=== PATIENT | male | born 1950 | race Caucasian/White ===

== ENCOUNTER → 2018-11-05 09:03 | Outpatient (CLI) | payer MEDICARE, BC, SELFPAY ==
[2018-11-05 10:38] LABS: Add Manual Diff / Slide Review NO; Alanine Aminotransferase 16 IU/L (21-72); Albumin 4.5 g/dL (3.5-5.0); Albumin Globulin Ratio 1.3 (1.0-2.8); Alkaline Phosphatase 90 U/L (38-126); Aspartate Aminotransferase 29 IU/L (17-59); BUN Creatinine Ratio 15.6 (6-22); Basophils Absolute Auto 100 /uL (0-100); Basophils Percent Auto 1.2 % (0-2); Bilirubin Total 0.7 mg/dL (0.2-1.3); Blood Urea Nitrogen 14 mg/dL (9-20); Calcium 9.6 mg/dL (8.4-10.2); Carbon Dioxide 27 mmol/L (22-32); Chloride 104 mmol/L (98-107); Cholesterol 190 mg/dL (140-199); Eosinophils Absolute Auto 100 /uL (0-450); Eosinophils Percent Auto 2.2 % (2-4); Estimated Glomerular Filt Rate > 60.0 mL/min (>60); Globulin 3.4 g/dL (1.7-4.1); Glucose 98 mg/dL (80-110); HDL Cholesterol 56 mg/dL (40-60); HEMOLYSIS < 15 (0-50); Hemoglobin 14.7 g/dL (13.5-17.5); LDL Cholesterol Calculated 108 mg/dL (<100); Lymphocytes Absolute Auto 2200 /uL (1100-4500); Lymphocytes Percent Auto 32.5 % (25-40); Mean Corpuscular HGB Conc 33.4 % (30-36); Mean Corpuscular Hemoglobin 30.8 PG (26-34); Mean Corpuscular Volume 92.3 fL (80-100); Monocytes Absolute Auto 500 /uL (0-900); Monocytes Percent Auto 8.2 % (3-14); Neutrophils Absolute Auto 3700 /uL (1500-7000); Neutrophils Percent Auto 55.9 % (50-75); Platelet Count 342 X10^3/uL (150-400); Potassium 4.3 mmol/L (3.4-5.1); Red Blood Cell Count 4.77 X10^6/uL (4.5-5.9); Red Cell Distribution Width 14.1 % (11.6-14.8); Sodium 141 mmol/L (137-145); Total Protein 7.9 g/dL (6.3-8.2); Triglycerides 131 mg/dL (35-150); White Blood Cell Count 6.7 X10^3/uL (4.5-11.0)
[2018-11-05 11:09] LABS: Thyroid Stimulating Hormone 3.36 uIU/mL (0.47-4.68)
== END ==
PROVIDERS: PCP Family Medicine; Visit Provider Family Medicine
DX: Z13.220 Encounter for screening for lipoid disorders (principal); Z13.29 Encounter for screening for other suspected endocrine disorder; Z51.81 Encounter for therapeutic drug level monitoring; Z87.09 Personal history of other diseases of the respiratory system; Z12.5 Encounter for screening for malignant neoplasm of prostate
CPT/HCPCS: 36415; 80053; 80061; 84443; 85025; G0103

== ENCOUNTER → 2018-12-08 13:41 | Outpatient (CLI) | payer MEDICARE, BC, SELFPAY ==
--- NOTE | 2018-12-08 13:43 | DI.US.S_ITS ---
PROCEDURE: US ARTERIAL DUPLEX UE LT COMPARISON: None. INDICATIONS: At outside facility, patient underwent attempted venous catheter placement, with the left subclavian artery injury, resulting in placement of a covered stent. Evaluation of the left subclavian is requested. FINDINGS: A covered stent is present in the left subclavian artery. There is significant narrowing within the stent. At the proximal end of the stent, there is a severe stenosis. At the distal stent there is also severe stenosis. Proximal velocity is 207 cm/s. Distal velocity is 260 cm/s. Visually, stenoses are approximately 70%. Left axillary, brachial, radial, and ulnar arteries are patent. These vessels have triphasic flow. IMPRESSION: A covered stent is present in the left subclavian artery. There is significant stenotic narrowing of the lumen proximally and distally, in the neighborhood of 70%. Dictated by: Lazaro Hinkle M.D. on 12/08/2018 at 17:17 Approved by: Lazaro Hinkle M.D. on 12/08/2018 at 17:21
--- NOTE | 2018-12-08 13:49 | DI.CT.S_ITS ---
PROCEDURE: CT HEAD/BRAIN WO CON INDICATIONS: facial droop TECHNIQUE: Noncontrast 4.5 mm thick angled axial sections acquired from the foramen magnum to the vertex, with coronal and sagittal reformats. For radiation dose reduction, the following was used: automated exposure control, adjustment of mA and/or kV according to patient size. COMPARISON: None. FINDINGS: Image quality: Excellent. CSF spaces: Basal cisterns are patent. No extra-axial fluid collections. The ventricles are symmetric in size and shape. Brain: No intracranial bleeds or masses. There is cerebral volume loss for age, with resultant ventricular and sulcal prominence. There are periventricular and deep white matter chronic small vessel ischemic changes. There is intracranial internal carotid artery atherosclerosis. Skull and face: Calvarium and visualized facial bones appear intact, without suspicious lesions. Sinuses: Visualized sinuses and mastoids are clear. IMPRESSION: No acute intracranial process. If there is persistent high clinical concern for acute ischemia, further evaluation with brain MRI can be performed. Dictated by: Mio Choi M.D. on 12/08/2018 at 14:26 Approved by: Mio Choi M.D. on 12/08/2018 at 15:08
== END ==
PROVIDERS: PCP Family Medicine; Visit Provider Family Medicine
DX: R29.810 Facial weakness (principal); S25.10 Unspecified injury of innominate or subclavian artery; I70.208 Unspecified atherosclerosis of native arteries of extremities, other extremity
CPT/HCPCS: 70450; 93931

== ENCOUNTER 2020-06-05 08:49 | Emergency (ER) | payer MEDICARE, BC, SELFPAY ==
[2020-06-05 08:58] VITALS: BP 178/99; PULSE 100; RESP 20; TEMP 37.1; O2SAT 97
--- NOTE | 2020-06-05 08:59 | DI.CT.S_ITS ---
PROCEDURE: CT KIDNEY URETER BLADDER (KUB) INDICATIONS: let flank TECHNIQUE: Noncontrast 5 mm thick sections acquired from the diaphragms to the symphysis. 5 mm thick coronal and sagittal reformats were then performed. For radiation dose reduction, the following was used: automated exposure control, adjustment of mA and/or kV according to patient size. COMPARISON: None. FINDINGS: Image quality: Excellent. Lung bases: Lung bases are clear. Heart size is normal. Urinary system: Both kidneys are normal in size. Small nonobstructing bilateral renal calculi are present. There is mild left hydronephrosis and left ureteral dilatation. 5 mm calculus within the distal left ureter is present, with Hounsfield units of 727. Bladder wall thickness is normal; no calcified bladder stones. Other solid organs: Liver is normal in size. Gallbladder is within normal limits . Pancreas is normal in contours. Spleen is normal in size. No adrenal nodules. Peritoneum and bowel: Small hiatal hernia. Unenhanced bowel loops demonstrate normal wall thickness and caliber. No free fluid or air. Normal appendix. Nodes and vessels: No retroperitoneal or mesenteric adenopathy by size criteria. Aorta and inferior vena cava are normal in caliber. Abdominal wall: No ventral hernias. Pelvis: No free pelvic fluid. No inguinal hernias or adenopathy. Bones: No suspicious bony lesions. No vertebral body compression fractures. IMPRESSION: 1. Distal left ureteral calculus associated with mild left hydronephrosis. 2. Nonobstructing bilateral renal calculi. 3. Normal appendix. 4. Small hiatal hernia. Dictated by: Austin Smiley M.D. on 06/05/2020 at 8:24 Approved by: Austin Smiley M.D. on 06/05/2020 at 8:26
[2020-06-05 09:03] VITALS: PULSE 95; RESP 30; O2SAT 95
[2020-06-05] MEDS: ONDANSETRON 4 MG/2 ML INJ IV ×2 (09:04→10:00)
[2020-06-05] MEDS: KETOROLAC 60 MG/2 ML VIAL 30 MG IV (09:04)
[2020-06-05 09:05] LABS: Add Manual Diff / Slide Review NO; Basophils Absolute Auto 100 /uL (0-100); Basophils Percent Auto 0.9 % (0-2); Eosinophils Absolute Auto 100 /uL (0-450); Eosinophils Percent Auto 1.9 % (2-4); Hematocrit 47.9 % (41-53); Lymphocytes Absolute Auto 2300 /uL (1100-4500); Lymphocytes Percent Auto 29.7 % (25-40); Mean Corpuscular HGB Conc 33.4 % (30-36); Mean Corpuscular Hemoglobin 31.4 PG (26-34); Mean Corpuscular Volume 93.9 fL (80-100); Monocytes Absolute Auto 600 /uL (0-900); Monocytes Percent Auto 7.2 % (3-14); Neutrophils Absolute Auto 4800 /uL (1500-7000); Neutrophils Percent Auto 60.3 % (50-75); Platelet Count 313 X10^3/uL (150-400); Red Cell Distribution Width 13.3 % (11.6-14.8); White Blood Cell Count 7.9 X10^3/uL (4.5-11.0)
--- NOTE | 2020-06-05 09:15 | ED.MALEGU ---
HPI - Male Genitourinary General Chief complaint: Urogenital-Male Stated complaint: severe abdominal pain Time Seen by Provider: 06/05/20 08:54 Source: patient Mode of arrival: Wheelchair Limitations: no limitations History of Present Illness HPI Narrative: Patient is a 69-year-old male with left flank pain which started abruptly this morning. Does have a history of kidney stones with the last 1 was 3 or 4 years ago in this pain seems to be much worse. It is radiating from his flank to his groin. He is unsure if he had any hematuria. Location: left flank Radiation: left inguinal region Related Data Home Medications Medication Instructions Recorded Confirmed aspirin 81 mg tablet,delayed 81 mg PO DAILY 09/23/18 09/01/19 release clobetasol 0.05 % topical cream 1 applictn TOP DAILY 11/03/18 09/01/19 Previous Rx's Medication Instructions Recorded oxygen #1 ea 09/23/18 oxygen concentrator #1 ea 09/23/18 fluticasone 500 mcg-salmeterol 50 See Rx Instructions .ROUTE 05/16/20 mcg/dose blistr powdr for .COMPLEX #60 unspecified inhalation hydrocodone-acetaminophen [Broadbent] 1 tab PO Q6H PRN #10 tab 06/05/20 ondansetron 4 mg PO Q8H #10 tab 06/05/20 Allergies Allergy/AdvReac Type Severity Reaction Status Date / Time No Known Drug Allergies Allergy Verified 09/01/19 14:27 Review of Systems Review of Systems Narrative: GENERAL: Denies chills, fatigue, malaise, fever, sweats, travel HEENT: Denies sinus pain, ear pain, sore throat, difficulty swallowing, neck pain RESPIRATORY: Denies dyspnea, cough, wheezing, hemoptysis, sputum. CARDIOVASCULAR: Denies chest pain, palpitations, orthopnea, edema GASTROINTESTINAL: Denies nausea, vomiting, abdominal pain, diarrhea, constipation, melena. : See HPI MUSCULOSKELETAL: Denies weakness, joint pain, or bony pain SKIN: No rash, no erythema, no pruritus NEUROLOGIC: Denies weakness, dizziness, headache, numbness, change in speech, confusion PSYCHIATRIC: No concerning psychosocial issues. 12 point review of systems is negative except for those stated above and HPI Patient History Medical History Actinic keratoses (Acute) Chicken pox (Resolved ~1954) COPD (chronic obstructive pulmonary disease) (Chronic) Discoid lupus (Acute) Hemorrhoid (Chronic ~1969) Measles (Resolved ~1954) Mumps (Resolved ~1954) Squamous cell carcinoma (Acute) Tobacco abuse disorder (Acute) Vision disorder (Chronic) Surgical History History of surgery (Resolved) Kidney stones (Resolved ~2016) Family History Father No problems noted. Mother No problems noted. Social History Smoking Status: Current every day smoker Tobacco: How many years used: 55 second hand exposure: No alcohol intake: current (a beer once a month or so.) substance use type: does not use Smoking Status: Current every day smoker alcohol intake frequency: 0-2 drinks per day Substance Use Type: does not use Exam Initial Vital Signs Initial Vital Signs: Vital Signs Temperature 98.7 F 06/05/20 08:58 Pulse Rate 100 H 06/05/20 08:58 Respiratory Rate 20 06/05/20 08:58 Blood Pressure 178/99 H 06/05/20 08:58 Pulse Oximetry 97 06/05/20 08:58 GENERAL: Patient appears in pain and in no acute distress. HEENT: Head atraumatic,EOMI, pupils reactive, face symmetric, moist mucous membranes CARDIOVASCULAR: Regular rate and rhythm without murmurs, rubs or gallops. RESPIRATORY: Breath sounds equal bilaterally, no wheezes rales or rhonchi. ABDOMEN: Soft, nontender. Normoactive bowel sounds all 4 quadrants. No guarding or rebound. : Left CVA tenderness EXTREMITIES: Normal range of motion, no clubbing or edema. Neurovascularly intact NEUROLOGICAL: Alert and oriented x4.N SKIN: Warm, dry, no laceration, no petechiae, no rashes or lesions. Course Orders Ordered: ED Orders 06/05/20 08:59 CT kidney ureter bladder (KUB) Stat 06/05/20 09:00 Complete Blood Count AUTO DIFF Stat Comprehensive Metabolic Panel Stat Lipase Stat 06/05/20 09:55 Urine Microscopic Stat Discontinued Medications Ketorolac Tromethamine (Toradol) 30 mg IV NOW ONE Stop: 06/05/20 09:00 Last Admin: 06/05/20 09:04 Dose: 30 mg Documented by: JONG Morphine Sulfate (Morphine) 4 mg IV NOW ONE Stop: 06/05/20 09:57 Last Admin: 06/05/20 10:00 Dose: 4 mg Documented by: HILARY Ondansetron HCl (Zofran) 4 mg IV NOW ONE Stop: 06/05/20 09:00 Last Admin: 06/05/20 09:04 Dose: 4 mg Documented by: JONG Ondansetron HCl (Zofran) 4 mg IV NOW ONE Stop: 06/05/20 09:57 Last Admin: 06/05/20 10:00 Dose: 4 mg Documented by: HILARY Vital Signs Vital signs: Vital Signs - 8 hr 06/05/20 08:58 06/05/20 09:03 06/05/20 09:30 Temperature 98.7 F Pulse Rate 100 H 95 H 98 H Respiratory Rate 20 30 H 21 Blood Pressure 178/99 H Pulse Oximetry 97 95 93 06/05/20 09:42 06/05/20 10:00 06/05/20 10:30 Temperature Pulse Rate 112 H 112 H 102 H Respiratory Rate 25 H 26 H 19 Blood Pressure 164/95 H 162/106 H 140/86 Pulse Oximetry 95 94 89 L MDM - Male Genitourinary Lab Data Attestation: I reviewed the patient's lab results. Result diagrams: 06/05/20 09:00 06/05/20 09:00 Labs: Lab Results 06/05/20 06/05/20 06/05/20 Range/Units 09:00 09:00 09:55 WBC 7.9 (4.5-11.0) X10^3/uL RBC 5.10 (4.5-5.9) X10^6/uL Hgb 16.0 (13.5-17.5) g/dL Hct 47.9 (41-53) % MCV 93.9 (80-100) fL MCH 31.4 (26-34) PG MCHC 33.4 (30-36) % RDW 13.3 (11.6-14.8) % Plt Count 313 (150-400) X10^3/uL Neut % (Auto) 60.3 (50-75) % Lymph % (Auto) 29.7 (25-40) % [place] % (Auto) 7.2 (3-14) % Eos % (Auto) 1.9 L (2-4) % Baso % (Auto) 0.9 (0-2) % Neut # (Auto) 4800 (9516-2853) /uL Lymph # (Auto) 2300 (1611-1828) /uL [place] # (Auto) 600 (0-900) /uL Eos # (Auto) 100 (0-450) /uL Baso # (Auto) 100 (0-100) /uL Sodium 140 (137-145) mmol/L Potassium 4.1 (3.4-5.1) mmol/L Chloride 109 H (98-107) mmol/L Carbon Dioxide 27 (22-32) mmol/L BUN 18 (9-20) mg/dL Creatinine 1.04 (0.66-1.25) mg/dL Estimated GFR > 60.0 (>60) mL/min BUN/Creatinine Ratio 17.3 (6-22) Glucose 149 H (80-110) mg/dL Calcium 9.4 (8.4-10.2) mg/dL Total Bilirubin 0.7 (0.2-1.3) mg/dL AST 31 (17-59) IU/L ALT 21 (<50) IU/L Alkaline Phosphatase 114 (38-126) U/L Total Protein 8.0 (6.3-8.2) g/dL Albumin 4.4 (3.5-5.0) g/dL Globulin 3.6 (1.7-4.1) g/dL Albumin/Globulin Ratio 1.2 (1.0-2.8) Lipase 82 (23-300) U/L Urine RBC 10-30/hpf H (0-5/HPF) Urine WBC None seen (0-5/HPF) Urine Bacteria None seen (None) Ur Culture Indicated? Cult not indicated Urine Dip Bedside Urine Glucose Negative Bedside Urine Bilirubin - Negative Bedside Urine Ketone - Negative Urine Specific [place] 1.030 Bedside Urine Occult Blood +++ Bedside Urine pH 6 Bedside Urine Protein - Negative Bedside Urine Urobilinogen - Negative Bedside Urine Nitrite - Negative Bedside Urine Leukocytes - Negative Esterase Imaging Data CT scan - abdomen/pelvis: Radiologist's Impression: PROCEDURE: CT KIDNEY URETER BLADDER (KUB) INDICATIONS: let flank TECHNIQUE: Noncontrast 5 mm thick sections acquired from the diaphragms to the symphysis. 5 mm thick coronal and sagittal reformats were then performed. For radiation dose reduction, the following was used: automated exposure control, adjustment of mA and/or kV according to patient size. COMPARISON: None. FINDINGS: Image quality: Excellent. Lung bases: Lung bases are clear. Heart size is normal. Urinary system: Both kidneys are normal in size. Small nonobstructing bilateral renal calculi are present. There is mild left hydronephrosis and left ureteral dilatation. 5 mm calculus within the distal left ureter is present, with Hounsfield units of 727. Bladder wall thickness is normal; no calcified bladder stones. Other solid organs: Liver is normal in size. Gallbladder is within normal limits . Pancreas is normal in contours. Spleen is normal in size. No adrenal nodules. Peritoneum and bowel: Small hiatal hernia. Unenhanced bowel loops demonstrate normal wall thickness and caliber. No free fluid or air. Normal appendix. Nodes and vessels: No retroperitoneal or mesenteric adenopathy by size criteria. Aorta and inferior vena cava are normal in caliber. Abdominal wall: No ventral hernias. Pelvis: No free pelvic fluid. No inguinal hernias or adenopathy. Bones: No suspicious bony lesions. No vertebral body compression fractures. IMPRESSION: 1. Distal left ureteral calculus associated with mild left hydronephrosis. 2. Nonobstructing bilateral renal calculi. 3. Normal appendix. 4. Small hiatal hernia. Dictated by: Austin Smiley M.D. on 06/05/2020 at 8:24 Approved by: Austin Smiley M.D. on 06/05/2020 at 8:26 [facility] Narrative Medical decision making narrative: Patient's pain is better controlled after morphine and Toradol. He does have a 5 mm stone no sign of infection. Discharge Plan Departure Patient Disposition: Home Clinical Impression: Kidney stone on left side Discharge Date/Time: 06/05/20 10:47 Activity Restrictions/Additional Instructions: *You have been diagnosed with left-sided kidney stimulation *What to do: You should pass this kidney stone over the next 72 hours. Increase fluid intake as tolerated *Continue to take medications as directed-->SENT TO [facility] Motrin 800 mg every 8 hours if needed for [id number] pain Broadbent 1 tablet every 6 hours for severe pain Zofran 4 mg every 8 hours for nausea or vomiting *Follow up with your primary care provider in 2-3 days *Return to ER if you should have pain not controlled with medication, fever, inability to urinate or any new, worsening or concerning symptoms CONTROLLED SUBSTANCE DISCHARGE (Narcotoic/benzodiazepine/Flexeril/Phenergan) 1. You have been prescribed narcotic medications, it does have acetaminophen/Tylenol/paracetamol in it so do not take extra Tylenol or Tylenol containing products TRAMADOL DOES NOT CONTAIN TYLENOL 2. Please understand that we cannot provide further refills of narcotics, benzodiazepines or controlled substances through the ED and her pain management will need to be through your provider. 3. While on these medications you cannot drive or operate heavy machinery. 4. You cannot sign legal documents or perform any duties such as this. 5. As long as you're taking opiate pain medications he should also be taking a stool softener such as Colace, Dulcolax, MiraLAX or prune juice, to help avoid constipation. Prescriptions: New hydrocodone-acetaminophen [Broadbent] 5-325 mg tablet 1 tab PO Q6H PRN (Reason: pain) Qty: 10 RF: 0 ondansetron 4 mg tablet,disintegrating 4 mg PO Q8H Qty: 10 RF: 0 No Action clobetasol 0.05 % cream 1 applictn TOP DAILY RF: 0 aspirin [Adult Aspirin Regimen] 81 mg tablet,delayed release (DR/EC) 81 mg PO DAILY RF: 0 (DME) oxygen concentrator Qty: 1 RF: 0 (DME) oxygen Qty: 1 RF: 0 fluticasone propion-salmeterol [Advair Diskus] 500-50 mcg/dose blister with device See Rx Instructions .ROUTE .COMPLEX Qty: 60 RF: 11 Referrals: Dago Jean DO [Primary Care Provider] -
[2020-06-05 09:16] LABS: Alanine Aminotransferase 21 IU/L (<50); Albumin 4.4 g/dL (3.5-5.0); Albumin Globulin Ratio 1.2 (1.0-2.8); Alkaline Phosphatase 114 U/L (38-126); Aspartate Aminotransferase 31 IU/L (17-59); BUN Creatinine Ratio 17.3 (6-22); Bilirubin Total 0.7 mg/dL (0.2-1.3); Blood Urea Nitrogen 18 mg/dL (9-20); Calcium 9.4 mg/dL (8.4-10.2); Carbon Dioxide 27 mmol/L (22-32); Chloride 109 mmol/L (98-107); Estimated Glomerular Filt Rate > 60.0 mL/min (>60); Globulin 3.6 g/dL (1.7-4.1); Glucose 149 mg/dL (80-110); HEMOLYSIS 19 (0-50); Lipase 82 U/L (23-300); Potassium 4.1 mmol/L (3.4-5.1); Sodium 140 mmol/L (137-145)
[2020-06-05 09:30] VITALS: PULSE 98; RESP 21; O2SAT 93
[2020-06-05 09:42] VITALS: BP 164/95; PULSE 112; RESP 25; O2SAT 95
[2020-06-05 10:00] VITALS: BP 162/106; PULSE 112; RESP 26; O2SAT 94
[2020-06-05] MEDS: MORPHINE 4 MG/ML INJ IV (10:00)
[2020-06-05 10:11] LABS: Bacteria Urine None Seen; WBC Urine None Seen (0-5/HPF)
[2020-06-05 10:21] LABS: Culture Indicated Urine Cult Not Indicated; RBC Urine 10-30/HPF (0-5/HPF)
[2020-06-05 10:30] VITALS: BP 140/86; PULSE 102; RESP 19; O2SAT 89
== END 2020-06-05 10:47 | disposition home or self-care (01) ==
PROVIDERS: Emergency Provider Emergency Medicine; PCP Family Medicine
DX: N20.0 Calculus of kidney (principal); Z87.442 Personal history of urinary calculi
CPT/HCPCS: 36415; 74176; 80053; 81003; 81015; 83690; 85025; 96374; 96375; 96376; 99283; 99284; J1885; J2270; J2405

== ENCOUNTER → 2023-09-12 15:05 | Outpatient (CLI) | payer MEDICARE, BC, SELFPAY ==
[2023-09-12 15:29] LABS: COVID19 -Nasal RAPID Negative (Negative)
== END ==
PROVIDERS: PCP Family Medicine; Visit Provider Family Medicine
DX: Z20.822 Contact with and (suspected) exposure to COVID-19 (principal)
CPT/HCPCS: 87635

== ENCOUNTER → 2023-09-17 12:53 | Outpatient (CLI) | payer MEDICARE, BC, SELFPAY ==
[2023-09-17 14:05] LABS: Add Manual Diff / Slide Review NO; Basophils Absolute Auto 100 /uL (0-100); Basophils Percent Auto 0.6 % (0-2); Eosinophils Absolute Auto 100 /uL (0-450); Hematocrit 41.2 % (41-53); Hemoglobin 13.8 g/dL (13.5-17.5); Lymphocytes Absolute Auto 1700 /uL (1100-4500); Lymphocytes Percent Auto 17.7 % (25-40); Mean Corpuscular HGB Conc 33.5 % (30-36); Mean Corpuscular Hemoglobin 30.7 PG (26-34); Mean Corpuscular Volume 91.6 fL (80-100); Monocytes Absolute Auto 400 /uL (0-900); Monocytes Percent Auto 4.2 % (3-14); Neutrophils Absolute Auto 7300 /uL (1500-7000); Neutrophils Percent Auto 76.5 % (50-75); Platelet Count 601 X10^3/uL (150-400); Red Cell Distribution Width 12.7 % (11.6-14.8); White Blood Cell Count 9.5 X10^3/uL (4.5-11.0)
[2023-09-17 14:36] LABS: Alanine Aminotransferase 20 IU/L (<50); Albumin 3.6 g/dL (3.5-5.0); Albumin Globulin Ratio 0.9 (1.0-2.8); Alkaline Phosphatase 97 U/L (38-126); Aspartate Aminotransferase 28 IU/L (17-59); BUN Creatinine Ratio 15.2 (6-22); Bilirubin Total 0.6 mg/dL (0.2-1.3); Blood Urea Nitrogen 12 mg/dL (9-20); Carbon Dioxide 27 mmol/L (22-32); Chloride 99 mmol/L (98-107); Estimated Glomerular Filt Rate > 60 mL/min (>60); Globulin 4.2 g/dL (1.7-4.1); Glucose 101 mg/dL (80-110); HEMOLYSIS < 15 (0-50); Potassium 5.3 mmol/L (3.4-5.1); Sodium 134 mmol/L (137-145); Total Protein 7.8 g/dL (6.3-8.2)
== END ==
PROVIDERS: PCP Family Medicine; Referring Provider Family Medicine; Visit Provider Family Medicine
DX: R63.4 Abnormal weight loss (principal); J44.9 Chronic obstructive pulmonary disease, unspecified; Z72.0 Tobacco use
CPT/HCPCS: 36415; 80053; 85025

== ENCOUNTER → 2023-09-23 10:24 | Outpatient (CLI) | payer MEDICARE, BC, SELFPAY ==
--- NOTE | 2023-09-23 10:30 | DI.CT.S_ITS ---
PROCEDURE: CT LUNG LOW DOSE SCREENING INDICATIONS: smoking, hypoxia, weight loss TECHNIQUE: Noncontrast 2.0-2.5 mm thick sections acquired from the pulmonary apices to the posterior costophrenic angles. 7 mm thick axial MIP, and 5 mm coronal and sagittal reformats were then acquired. For radiation dose reduction, the following was used: automated exposure control, adjustment of mA and/or kV according to patient size. COMPARISON: None. FINDINGS: Image quality: Diagnostic. Lower Neck: No enlarged lymph nodes. Thyroid: No thyroid nodules which require sonographic follow up, per consensus guidelines. Axillae: No enlarged lymph nodes. Chest Wall: Unremarkable. Bones: Unremarkable. Lungs and Pleura: No pneumothorax or pleural effusions. Severe upper lobe predominant centrilobular emphysema. There are multiple areas of masslike consolidation predominantly in the dependent aspect of the right upper and right lower lobe, for example mass-like consolidation in the right lower lobe measuring 2.8 x 2.1 centimeter (3/284). Heart: Heart size is normal. No pericardial effusion. Moderate to severe coronary artery calcifications. Thoracic Vessels: The aorta and pulmonary arteries demonstrate normal size. Mediastinum and [place]: No enlarged lymph nodes. Esophagus: No wall thickening. No hiatal hernia. Upper Abdomen: Visualized upper abdomen solid organs and bowel loops appear normal. IMPRESSION: Multiple masslike consolidations in the right lung with largest confluent area in the posterior right lower lobe measuring approximately 2.8 centimeters. No thoracic lymphadenopathy. Severe upper lobe predominant centrilobular emphysema. LUNG-RADS 4 B; suspicious: Recommend chest CT with and without contrast, PET-CT and/or biopsy. Clinically Significant Non-pulmonary Findings: Moderate to severe coronary artery calcifications. Consider cardiology referral. Approved by: Farida Miles M.D. on 09/23/2023 at 12:42
== END ==
PROVIDERS: PCP Family Medicine; Referring Provider Family Medicine; Visit Provider Family Medicine
DX: J44.9 Chronic obstructive pulmonary disease, unspecified (principal); R91.8 Other nonspecific abnormal finding of lung field; Z72.0 Tobacco use; Z12.2 Encounter for screening for malignant neoplasm of respiratory organs; R63.4 Abnormal weight loss; I25.10 Atherosclerotic heart disease of native coronary artery without angina pectoris
CPT/HCPCS: 71271

== ENCOUNTER → 2024-01-02 12:00 | Outpatient (CLI) | payer MEDICARE, BC, SELFPAY ==
--- NOTE | 2024-01-02 12:02 | DI.CT.S_ITS ---
PROCEDURE: CT SOFT TISSUE NECK WO CON INDICATIONS: Squamous Cell Carcinoma of lip TECHNIQUE: Non-contrast 3.0 mm axial sections acquired from the sella to the aortic arch. 3 mm thick coronal reformats were generated. For radiation dose reduction, the following was used: automated exposure control. COMPARISON: [facility], CT, CT CHEST WO CON, 01/02/2024, 12:13. FINDINGS: Image quality: Limited by lack of IV contrast. There is artifact associated with the metallic dental work. Lymph nodes: No enlarged lymph nodes seen throughout the neck. Vessels: Non-opacified vessels appear normal in caliber. Neck spaces: The oropharynx, nasopharynx, and pharynx demonstrate no mucosal lesions. The vocal cords, false vocal cords, pyriform sinuses, epiglottis, vallecula, and tongue base all appear normal. Soft tissue swelling and irregularity can be seen involving the right lower lip. Emphysematous changes Glands: The parotid and submandibular glands appear normal, without stones. Thyroid gland demonstrates no significant noncontrast abnormality. Miscellaneous: Visualized brain and orbits appear normal. Emphysematous changes can be seen at the lung apices. Superficial soft tissues appear normal. There is a left subclavian stent seen. IMPRESSION: Known soft tissue irregularity can be seen involving the right lower lip. No additional masses are seen. No frankly enlarged lymph nodes are seen. Additional findings: Emphysematous changes Left subclavian stent Dictated by: Klever May M.D. on 01/06/2024 at 14:53 Approved by: Klever May M.D. on 01/06/2024 at 14:56
--- NOTE | 2024-01-02 12:02 | DI.CT.S_ITS ---
PROCEDURE: CT CHEST WO CON INDICATIONS: Squamous Cell Carcinoma of lip TECHNIQUE: Noncontrast 5 mm thick sections acquired from the pulmonary apices to the posterior costophrenic angles. 1 mm lung window, 5 mm thick coronal and sagittal and 7 mm axial MIP reformats were then acquired. For radiation dose reduction, the following was used: automated exposure control, adjustment of mA and/or kV according to patient size. COMPARISON: [facility], CT, CT LUNG LOW DOSE SCREENING, 09/23/2023, 10:46. FINDINGS: Image quality: Diagnostic Lungs and pleura: Advanced emphysematous changes. Scattered scarring and atelectasis. Masslike consolidation, appearing linear on coronal images, probably a thick area of scar (4/37) measuring 9 mm in thickness. Smaller nodular areas is also seen in the lingula and dependent lower lobes. These findings are decreased compared to September of 2023. No pleural effusions. Mediastinum, heart, and esophagus: Atherosclerotic calcifications. Heart size is within normal limits. Significant coronary disease. No pathologic lymph nodes by size criteria on this noncontrast study. Chest wall and thyroid: Unremarkable thyroid and chest wall Upper abdomen: No gross abnormality on these noncontrast images. The stomach is mildly distended. Bones: Degenerative changes. IMPRESSION: Scattered scarring and atelectasis in the lungs. More nodular regions are seen in the right upper lobe, dependent lower lobes, and lingula, overall decreased in severity compared to 09/23/2023. Continued attention on follow-up suggested given provided history of malignancy. Other findings as above. Dictated by: Yann Waggoner M.D. on 01/02/2024 at 14:18 Approved by: Yann Waggoner M.D. on 01/02/2024 at 14:21
== END ==
PROVIDERS: PCP Family Medicine; Referring Provider Radiology Radiation Oncology; Visit Provider Radiology Radiation Oncology
DX: C00.1 Malignant neoplasm of external lower lip (principal); J98.4 Other disorders of lung; J98.11 Atelectasis; I25.10 Atherosclerotic heart disease of native coronary artery without angina pectoris; R91.8 Other nonspecific abnormal finding of lung field; M79.89 Other specified soft tissue disorders; Z95.828 Presence of other vascular implants and grafts
CPT/HCPCS: 70490; 71250

== ENCOUNTER 2024-01-16 14:21 | Inpatient (IN) | payer MEDICARE, BC, SELFPAY ==
[2024-01-16 14:23] VITALS: BP 130/79; PULSE 114; RESP 16; TEMP 36.5; O2SAT 94; BMI 19.9
[2024-01-16 14:45] LABS: Add Manual Diff / Slide Review NO; Basophils Absolute Auto 100 /uL (0-100); Basophils Percent Auto 1.1 % (0-2); Eosinophils Absolute Auto 200 /uL (0-450); Eosinophils Percent Auto 1.6 % (2-4); Hematocrit 41.9 % (41-53); Hemoglobin 14.1 g/dL (13.5-17.5); Lymphocytes Absolute Auto 1200 /uL (1100-4500); Lymphocytes Percent Auto 11.7 % (25-40); Mean Corpuscular HGB Conc 33.6 % (30-36); Mean Corpuscular Hemoglobin 30.9 PG (26-34); Monocytes Absolute Auto 600 /uL (0-900); Monocytes Percent Auto 5.5 % (3-14); Neutrophils Absolute Auto 8400 /uL (1500-7000); Neutrophils Percent Auto 80.1 % (50-75); Platelet Count 373 X10^3/uL (150-400); Red Blood Cell Count 4.56 X10^6/uL (4.5-5.9); Red Cell Distribution Width 12.6 % (11.6-14.8); White Blood Cell Count 10.4 X10^3/uL (4.5-11.0)
[2024-01-16 14:58] LABS: Alanine Aminotransferase 15 IU/L (<50); Albumin 4.4 g/dL (3.5-5.0); Albumin Globulin Ratio 1.1 (1.0-2.8); Alkaline Phosphatase 106 U/L (38-126); Aspartate Aminotransferase 31 IU/L (17-59); Bilirubin Total 0.7 mg/dL (0.2-1.3); Blood Urea Nitrogen 17 mg/dL (9-20); Calcium 9.9 mg/dL (8.4-10.2); Carbon Dioxide 33 mmol/L (22-32); Chloride 103 mmol/L (98-107); Estimated Glomerular Filt Rate > 60 mL/min (>60); Globulin 4.1 g/dL (1.7-4.1); Glucose 146 mg/dL (80-110); HEMOLYSIS 42 (0-50); Lipase 64 U/L (23-300); Sodium 141 mmol/L (137-145); Total Protein 8.5 g/dL (6.3-8.2)
[2024-01-16 14:59] LABS: Potassium 5.4 mmol/L (3.4-5.1)
--- NOTE | 2024-01-16 15:10 | DI.CT.S_ITS ---
PROCEDURE: CT ABDOMEN PELVIS W CON INDICATIONS: Eval for bowel obstruction TECHNIQUE: After the administration of intravenous contrast, axial sections acquired from the lung bases to the pubic symphysis. Coronal and sagittal reformats were performed. For radiation dose reduction, the following was used: automated exposure control, adjustment of mA and/or kV according to patient size. COMPARISON: None. FINDINGS: Image quality: Diagnostic. Lower Chest: No significant findings. ABDOMEN: Liver: No solid mass. Liver measures 16.4 cm with minimal steatosis. Gallbladder: No radiopaque gallstones or wall thickening. Biliary ducts: No biliary dilation. Pancreas: No ductal dilation. Spleen: Size is within normal limits. Adrenal Glands: No adrenal nodules. Kidneys and Ureters: No hydronephrosis. No solid mass. No complex renal cystic lesion which requires follow up. Stomach and Bowel: Normal colonic caliber, without significant wall thickening. Prominent colonic stool particularly within the left colon and rectum. No obstruction. Peritoneum: No abnormal intraperitoneal fluid. No free air. Ventral Wall: No significant ventral hernia. Abdominal Nodes: No retroperitoneal or mesenteric adenopathy by size criteria. Vessels: Aorta and inferior vena cava are normal in size. PELVIS: Pelvic Organs: Unremarkable. Bladder: No bladder wall thickening, accounting for underdistention. Pelvic Nodes: No enlarged lymph nodes. Miscellaneous: No inguinal hernias are seen. Bones: No aggressive osseous abnormality. IMPRESSION: Prominent colonic stool without obstruction. Dictated by: Zohra Scales M.D. on 01/16/2024 at 16:11 Approved by: Zohra Scales M.D. on 01/16/2024 at 16:12
[2024-01-16 16:41] VITALS: BP 103/68; PULSE 121; RESP 26; O2SAT 93
--- NOTE | 2024-01-16 17:15 | ED_ITS ---
HPI - General Adult <Hamilton aWtts - Last Filed: 01/17/24 07:12> General Chief complaint: Abdominal Pain Stated complaint: abd pain, constipation, gas Time Seen by Provider: 01/16/24 16:52 Source: patient Mode of arrival: Ambulatory History of Present Illness HPI narrative: Patient is a 73-year-old male who is here for evaluation of what he thinks is constipation. He states that he can not remember the last time that he had a bowel movement. States it feels like there is something down in his rectum ready to come out. Has not tried anything for the symptoms prior to this. No prior abdominal surgeries. Has had some nausea but no vomiting. No fevers. No urinary symptoms. Related Data Previous Rx's Medication Instructions Recorded oxygen #1 ea 11/12/23 oxygen concentrator #1 ea 11/12/23 Allergies Allergy/AdvReac Type Severity Reaction Status Date / Time No Known Drug Allergies Allergy Verified 09/27/23 11:37 Review of Systems <Hamilton Watts - Last Filed: 01/17/24 07:12> Constitutional Constitutional: Reports system reviewed and no additional complaints, except as documented Gastrointestinal Gastrointestinal: Reports system reviewed and no additional complaints, except as documented Genitourinary Genitourinary: Reports system reviewed and no additional complaints, except as documented Integumentary/Breasts Skin/Breast: Reports system reviewed and no additional complaints, except as documented Patient History <Hamilton Watts DO - Last Filed: 01/17/24 07:12> Medical History Diffusion capacity of lung (dl), decreased Weight loss, abnormal Hiatal hernia Kidney stones Kidney stone on left side Tobacco abuse disorder COPD (chronic obstructive pulmonary disease) Discoid lupus Squamous cell carcinoma Actinic keratoses Vision disorder Mumps (~1955) Measles (~1954) Chicken pox (~1954) Hemorrhoid (~1970) Surgical History History of surgery Kidney stones (~2017) Family History Father No problems noted. Mother No problems noted. Social History Smoking Status: Current every day smoker Tobacco: How many years used: 55 second hand exposure: No alcohol intake: current substance use type: does not use Smoking Status: Current every day smoker alcohol intake frequency: 0-2 drinks per day Substance Use Type: does not use Exam <Hamilton Watts DO - Last Filed: 01/17/24 07:12> Initial Vital Signs Initial Vital Signs: Vital Signs Temperature 97.7 F 01/16/24 14:23 Pulse Rate 114 H 01/16/24 14:23 Respiratory Rate 16 01/16/24 14:23 Blood Pressure 130/79 01/16/24 14:23 Pulse Oximetry 94 01/16/24 14:23 Oxygen Delivery Method Room Air 01/16/24 14:23 HENMT Head: normal to inspection and normocephalic Resp Effort & Inspection: normal respiratory effort GI Inspection: non-distended Palpation: soft and tender Rectal Exam: fecal impaction Skin General: no rashes or lesions noted Extrem General: normal to inspection and capillary refill normal <Doyle Lainez MD - Last Filed: 01/17/24 07:44> Initial Vital Signs Initial Vital Signs: Vital Signs Temperature 97.7 F 01/16/24 14:23 Pulse Rate 114 H 01/16/24 14:23 Respiratory Rate 16 01/16/24 14:23 Blood Pressure 130/79 01/16/24 14:23 Pulse Oximetry 94 01/16/24 14:23 Oxygen Delivery Method Room Air 01/16/24 14:23 Course <Hamilton Watts DO - Last Filed: 01/17/24 07:12> Orders Ordered: Acetaminophen (Acetaminophen 325 Mg Tablet) 650 mg PO Q6H PRN PRN Reason: Fever/Mild Pain (1-3) Al Hydrox/Mg Hydrox/Simethicone (Mag Hydrox/Alum/Simeth 30 Ml Udc) 30 ml PO Q6HR PRN PRN Reason: Dyspepsia Bisacodyl (Bisacodyl 10 Mg Supp) 10 mg MT DAILY PRN PRN Reason: Constipation Magnesium Hydroxide (Magnesium Hydroxide 30 Ml Udc) 30 ml PO DAILY PRN PRN Reason: Constipation Naloxone HCl (Naloxone 0.4 Mg/Ml Vial) 0.2 mg IV Q2MIN PRN PRN Reason: Opiate Reversal Ondansetron HCl (Ondansetron 4 Mg/2 Ml Inj) 4 mg IV NOW PRN PRN Reason: Nausea And Vomiting Ondansetron HCl (Ondansetron 4 Mg Odt) 4 mg PO NOW PRN PRN Reason: Nausea And Vomiting Ondansetron HCl (Ondansetron 4 Mg/2 Ml Inj) 4 mg IV Q8HR PRN PRN Reason: Nausea And Vomiting Discontinued Medications Hydromorphone HCl (Hydromorphone 0.5 Mg Inj) 0.5 mg IV NOW ONE Stop: 01/16/24 23:16 Last Admin: 01/16/24 23:23 Dose: 0.5 mg Documented By: AB Hydromorphone HCl (Hydromorphone 1 Mg Inj) 1 mg IV NOW ONE Stop: 01/17/24 04:52 Last Admin: 01/17/24 05:01 Dose: 1 mg Documented By: Lactulose (Lactulose 20 Gm/30 Ml Solution) 20 gm PO NOW ONE Stop: 01/16/24 19:18 Last Admin: 01/16/24 19:21 Dose: 20 gm Documented By: Mineral Oil (Mineral Oil 1 Each Enema) 1 each MT NOW ONE Stop: 01/16/24 18:23 Last Admin: 01/16/24 18:28 Dose: 1 each Documented By: JAKOB Polyethylene Glycol/Electrolytes ([id number]/Sod Sulf,Bicarb,Cl/Kcl 4,000 Ml Solution) 4,000 ml PO NOW ONE Stop: 01/17/24 01:53 Last Admin: 01/17/24 02:15 Dose: 4,000 ml Documented By: SR Sodium Biphosphate/Sodium Phosphate (Fleets Enema) 1 each MT NOW ONE Stop: 01/16/24 17:24 Last Admin: 01/16/24 17:36 Dose: 1 each Documented By: MPO Vital Signs Vital signs: Vital Signs - 8 hr 01/16/24 16:41 Pulse Rate 121 H Respiratory Rate 26 H Blood Pressure 103/68 Pulse Oximetry 93 Oxygen Delivery Method Room Air <Doyle Lainez MD - Last Filed: 01/17/24 07:44> Orders Ordered: Acetaminophen (Acetaminophen 325 Mg Tablet) 650 mg PO Q6H PRN PRN Reason: Fever/Mild Pain (1-3) Al Hydrox/Mg Hydrox/Simethicone (Mag Hydrox/Alum/Simeth 30 Ml Udc) 30 ml PO Q6HR PRN PRN Reason: Dyspepsia Bisacodyl (Bisacodyl 10 Mg Supp) 10 mg MT DAILY PRN PRN Reason: Constipation Magnesium Hydroxide (Magnesium Hydroxide 30 Ml Udc) 30 ml PO DAILY PRN PRN Reason: Constipation Naloxone HCl (Naloxone 0.4 Mg/Ml Vial) 0.2 mg IV Q2MIN PRN PRN Reason: Opiate Reversal Ondansetron HCl (Ondansetron 4 Mg/2 Ml Inj) 4 mg IV NOW PRN PRN Reason: Nausea And Vomiting Ondansetron HCl (Ondansetron 4 Mg Odt) 4 mg PO NOW PRN PRN Reason: Nausea And Vomiting Ondansetron HCl (Ondansetron 4 Mg/2 Ml Inj) 4 mg IV Q8HR PRN PRN Reason: Nausea And Vomiting Discontinued Medications Hydromorphone HCl (Hydromorphone 0.5 Mg Inj) 0.5 mg IV NOW ONE Stop: 01/16/24 23:16 Last Admin: 01/16/24 23:23 Dose: 0.5 mg Documented By: Hydromorphone HCl (Hydromorphone 1 Mg Inj) 1 mg IV NOW ONE Stop: 01/17/24 04:52 Last Admin: 01/17/24 05:01 Dose: 1 mg Documented By: Lactulose (Lactulose 20 Gm/30 Ml Solution) 20 gm PO NOW ONE Stop: 01/16/24 19:18 Last Admin: 01/16/24 19:21 Dose: 20 gm Documented By: Mineral Oil (Mineral Oil 1 Each Enema) 1 each MT NOW ONE Stop: 01/16/24 18:23 Last Admin: 01/16/24 18:28 Dose: 1 each Documented By: JAKOB Polyethylene Glycol/Electrolytes ([id number]/Sod Sulf,Bicarb,Cl/Kcl 4,000 Ml Solution) 4,000 ml PO NOW ONE Stop: 01/17/24 01:53 Last Admin: 01/17/24 02:15 Dose: 4,000 ml Documented By: SR Sodium Biphosphate/Sodium Phosphate (Fleets Enema) 1 each MT NOW ONE Stop: 01/16/24 17:24 Last Admin: 01/16/24 17:36 Dose: 1 each Documented By: JAKOB Vital Signs Vital signs: Vital Signs - 8 hr 01/16/24 16:41 Pulse Rate 121 H Respiratory Rate 26 H Blood Pressure 103/68 Pulse Oximetry 93 Oxygen Delivery Method Room Air Medical Decision Making <Hamilton Watts, DO - Last Filed: 01/17/24 07:12> Lab Data Lab results reviewed: Yes I reviewed the patient's lab results. 01/17/24 05:47 01/17/24 05:47 Labs: Lab Results 01/16/24 Range/Units 14:30 WBC 10.4 (4.5-11.0) X10^3/uL RBC 4.56 (4.5-5.9) X10^6/uL Hgb 14.1 (13.5-17.5) g/dL Hct 41.9 (41-53) % MCV 92.0 (80-100) fL MCH 30.9 (26-34) PG MCHC 33.6 (30-36) % RDW 12.6 (11.6-14.8) % Plt Count 373 (150-400) X10^3/uL Neut % (Auto) 80.1 H (50-75) % Lymph % (Auto) 11.7 L (25-40) % [place] % (Auto) 5.5 (3-14) % Eos % (Auto) 1.6 L (2-4) % Baso % (Auto) 1.1 (0-2) % Neut # (Auto) 8400 H (2796-3599) /uL Lymph # (Auto) 1200 (5190-1442) /uL [place] # (Auto) 600 (0-900) /uL Eos # (Auto) 200 (0-450) /uL Baso # (Auto) 100 (0-100) /uL Sodium 141 (137-145) mmol/L Potassium 5.4 H (3.4-5.1) mmol/L Chloride 103 (98-107) mmol/L Carbon Dioxide 33 H (22-32) mmol/L BUN 17 (9-20) mg/dL Creatinine 0.81 (0.66-1.25) mg/dL Estimated GFR > 60 (>60) mL/min BUN/Creatinine Ratio 21.0 (6-22) Glucose 146 H (80-110) mg/dL Calcium 9.9 (8.4-10.2) mg/dL Total Bilirubin 0.7 (0.2-1.3) mg/dL AST 31 (17-59) IU/L ALT 15 (<50) IU/L Alkaline Phosphatase 106 (38-126) U/L Total Protein 8.5 H (6.3-8.2) g/dL Albumin 4.4 (3.5-5.0) g/dL Globulin 4.1 (1.7-4.1) g/dL Albumin/Globulin Ratio 1.1 (1.0-2.8) Lipase 64 (23-300) U/L Imaging Data CT scan - abdomen/pelvis: Radiologist's Impression: PROCEDURE: CT ABDOMEN PELVIS W CON INDICATIONS: Eval for bowel obstruction TECHNIQUE: After the administration of intravenous contrast, axial sections acquired from the lung bases to the pubic symphysis. Coronal and sagittal reformats were performed. For radiation dose reduction, the following was used: automated exposure control, adjustment of mA and/or kV according to patient size. COMPARISON: None. FINDINGS: Image quality: Diagnostic. Lower Chest: No significant findings. ABDOMEN: Liver: No solid mass. Liver measures 16.4 cm with minimal steatosis. Gallbladder: No radiopaque gallstones or wall thickening. Biliary ducts: No biliary dilation. Pancreas: No ductal dilation. Spleen: Size is within normal limits. Adrenal Glands: No adrenal nodules. Kidneys and Ureters: No hydronephrosis. No solid mass. No complex renal cystic lesion which requires follow up. Stomach and Bowel: Normal colonic caliber, without significant wall thickening. Prominent colonic stool particularly within the left colon and rectum. No obstruction. Peritoneum: No abnormal intraperitoneal fluid. No free air. Ventral Wall: No significant ventral hernia. Abdominal Nodes: No retroperitoneal or mesenteric adenopathy by size criteria. Vessels: Aorta and inferior vena cava are normal in size. PELVIS: Pelvic Organs: Unremarkable. Bladder: No bladder wall thickening, accounting for underdistention. Pelvic Nodes: No enlarged lymph nodes. Miscellaneous: No inguinal hernias are seen. Bones: No aggressive osseous abnormality. IMPRESSION: Prominent colonic stool without obstruction. MDM Narrative Medical decision making narrative: CT scan of the abdomen shows no signs of obstruction although he does have a large colonic stool burden. This does fit with his presentation today. Patient was given a fleets enema without any resolution of symptoms. He was then given a mineral oil enema with a small passage of stool. Still feeling quite a bit of pressure. Rectal exam was performed and there was some stool in the rectal vault that I did try to disimpact but with only minimal improvement. Will order oral medications. Care turned over to Dr. Lainez to follow-up and disposition. <Doyle Lainez MD - Last Filed: 01/17/24 07:44> Lab Data Labs: Lab Results 01/16/24 Range/Units 14:30 WBC 10.4 (4.5-11.0) X10^3/uL RBC 4.56 (4.5-5.9) X10^6/uL Hgb 14.1 (13.5-17.5) g/dL Hct 41.9 (41-53) % MCV 92.0 (80-100) fL MCH 30.9 (26-34) PG MCHC 33.6 (30-36) % RDW 12.6 (11.6-14.8) % Plt Count 373 (150-400) X10^3/uL Neut % (Auto) 80.1 H (50-75) % Lymph % (Auto) 11.7 L (25-40) % [place] % (Auto) 5.5 (3-14) % Eos % (Auto) 1.6 L (2-4) % Baso % (Auto) 1.1 (0-2) % Neut # (Auto) 8400 H (6122-0985) /uL Lymph # (Auto) 1200 (0353-9120) /uL [place] # (Auto) 600 (0-900) /uL Eos # (Auto) 200 (0-450) /uL Baso # (Auto) 100 (0-100) /uL Sodium 141 (137-145) mmol/L Potassium 5.4 H (3.4-5.1) mmol/L Chloride 103 (98-107) mmol/L Carbon Dioxide 33 H (22-32) mmol/L BUN 17 (9-20) mg/dL Creatinine 0.81 (0.66-1.25) mg/dL Estimated GFR > 60 (>60) mL/min BUN/Creatinine Ratio 21.0 (6-22) Glucose 146 H (80-110) mg/dL Calcium 9.9 (8.4-10.2) mg/dL Total Bilirubin 0.7 (0.2-1.3) mg/dL AST 31 (17-59) IU/L ALT 15 (<50) IU/L Alkaline Phosphatase 106 (38-126) U/L Total Protein 8.5 H (6.3-8.2) g/dL Albumin 4.4 (3.5-5.0) g/dL Globulin 4.1 (1.7-4.1) g/dL Albumin/Globulin Ratio 1.1 (1.0-2.8) Lipase 64 (23-300) U/L [facility] Narrative Medical decision making narrative: CT scan of the abdomen shows no signs of obstruction although he does have a large colonic stool burden. This does fit with his presentation today. Patient was given a fleets enema without any resolution of symptoms. He was then given a mineral oil enema with a small passage of stool. Still feeling quite a bit of pressure. Rectal exam was performed and there was some stool in the rectal vault that I did try to disimpact but with only minimal improvement. Will order oral medications. Care turned over to Dr. Lainez to follow-up and disposition. Migel, 01/16/2024 at 7:30 p.m., sign-out from Dr. Watts. 73-year-old male with constipation symptoms, last BM days ago, CT abdomen and pelvis tonight showed no acute changes, but significant colonic stool burden. Fleets enema given with minimal results, mineral oil suppository given, minimal results, Dr. Langston her did attempt DILLON but was not able to palpate any stool for digital disimpaction. Patient taking oral lactulose. Assumed care 2300, still little response to treatment thus far, lactulose only produced small amount of stool so far, consider admit for bowel regimen GoLYTELY versus other approach. Patient still having abdominal discomfort. We will contact hospitalist [phone], case discussed with hospitalist Dr. Duron, accepts patient for admission to observation Critical Care Time <Dyole Lainez MD - Last Filed: 01/17/24 07:44> Critical Care Time Critical Care Time: Yes Total Critical Care Time: 35 Attestation: The high probability of a clinically significant, sudden or life threatening deterioration of the [abdominal pelvic, gastrointestinal] system(s) required my full and direct attention, intervention and personal management. The aggregate critical care time was [35] minutes. This time is in addition to time spent performing reported procedures but includes the following: [x] Data Review and interpretation [x] Patient assessment and monitoring of vital signs [x] Documentation [x] Medication orders and management Discharge Plan Departure Patient Disposition: Admitted as Observation Clinical Impression: Abdominal pain, Constipation Admit Date/Time: 01/16/24 23:51 Admit Provider: Power Duron
[2024-01-16] MEDS: FLEETS ENEMA 1 EACH PR (17:36)
--- NOTE | 2024-01-16 18:01 | PC.NURSE ---
pt up to [facility] and enema unsuccessful. pt states that he is experiencing abd and rectal pain that he describes as intense pressure and a 7/10. dr adames notified.
--- NOTE | 2024-01-16 18:16 | PC.NURSE ---
Pt sitting on commode. States that he is in pain and feels like there is pressure on his rectum. Pt states he is in 9/[address] Watts notified and will speak with pt.
[2024-01-16] MEDS: MINERAL OIL 1 EACH ENEMA PR (18:28)
[2024-01-16] MEDS: LACTULOSE 20 GM/30 ML SOLUTION PO (19:21)
[2024-01-16] MEDS: HYDROMORPHONE 0.5 MG INJ IV (23:23)
[2024-01-17 00:46] VITALS: BMI 19.9
[2024-01-17 01:48] VITALS: BP 130/75; PULSE 114; RESP 18; TEMP 37.2; O2SAT 93
--- NOTE | 2024-01-17 02:11 | P.HP_ITS ---
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 intake/weight loss, and other issues presented to the emergency room for abdominal discomfort with nausea and severe constipation with last unknown bowel movement. His intake has been poor and has been family drinking boost/liquid since the past couple of months after his diagnosis of the lip cancer. Has been straining and thinks he has hemorrhoids that causes pain. Denies any fever episodes. Denies any chest pain shortness of breath palpitation dizziness or loss of consciousness. No bladder issues. Has generalized weakness and speech is slow. In the ED was noted to be tachycardic with evidence of dehydration. Creatinine was 0.81 with normal AST/ALT levels. WBC is 10.[address] scan of the abdomen shows prominent colonic stool without obstruction. Patient received multiple doses of suppositories/Fleet enema and also DILLON was attempted. With poor response in the emergency room, he was admitted for further evaluation [facility] Medical History Diffusion capacity of lung (dl), decreased Weight loss, abnormal Hiatal hernia Kidney stones Kidney stone on left side Tobacco abuse disorder COPD (chronic obstructive pulmonary disease) Discoid lupus Squamous cell carcinoma Actinic keratoses Vision disorder Mumps (~1954) Measles (~1954) Chicken pox (~1954) Hemorrhoid (~1969) Surgical History History of surgery Kidney stones (~2016) Family History Father No problems noted. Mother No problems noted. Social History Smoking Status: Current every day smoker Tobacco: How many years used: 55 second hand exposure: No alcohol intake: current substance use type: does not use Meds Home Medications and Allergies Home Medications Medication Instructions Recorded Confirmed Type oxygen #1 ea 11/12/23 01/17/24 Rx oxygen concentrator #1 ea 11/12/23 01/17/24 Rx Allergies Allergy/AdvReac Type Severity Reaction Status Date / Time No Known Drug Allergies Allergy Verified 09/27/23 11:37 Review of Systems Review of Systems Narrative: 12 point review of system is negative unless as listed in the history of present illness Exam Vital Signs (past 8 hours): Oxygen Delivery Method Room Air Narrative Exam Narrative: 12 point review of system is negative unless as listed in the history of present illness Objective Labs 01/16/24 14:30 01/16/24 14:30 Labs: Laboratory Results - last 24 hr 01/16/24 14:30 WBC 10.4 RBC 4.56 Hgb 14.1 Hct 41.9 MCV 92.0 MCH 30.9 MCHC 33.6 RDW 12.6 Plt Count 373 Neut % (Auto) 80.1 H Lymph % (Auto) 11.7 L [place] % (Auto) 5.5 Eos % (Auto) 1.6 L Baso % (Auto) 1.1 Neut # (Auto) 8400 H Lymph # (Auto) 1200 [place] # (Auto) 600 Eos # (Auto) 200 Baso # (Auto) 100 Sodium 141 Potassium 5.4 H Chloride 103 Carbon Dioxide 33 H BUN 17 Creatinine 0.81 Estimated GFR > 60 BUN/Creatinine Ratio 21.0 Glucose 146 H Calcium 9.9 Total Bilirubin 0.7 AST 31 ALT 15 Alkaline Phosphatase 106 Total Protein 8.5 H Albumin 4.4 Globulin 4.1 Albumin/Globulin Ratio 1.1 Lipase 64 Assessment & Plan Assessment and plan (1) Constipation: Status: Acute Plan 73 years old male with a past medical history of 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 intake/weight loss, and other issues presented to the emergency room for abdominal discomfort with nausea and severe constipation with last unknown bowel movement. His intake has been poor and has been family drinking boost/liquid since the past couple of months after his diagnosis of the lip cancer. Has been straining and thinks he has hemorrhoids that causes pain. Denies any fever episodes. Denies any chest pain shortness of breath palpitation dizziness or loss of consciousness. No bladder issues. Has generalized weakness and speech is slow. In the ED was noted to be tachycardic with evidence of dehydration. Creatinine was 0.81 with normal AST/ALT levels. WBC is 10.[address] scan of the abdomen shows prominent colonic stool without obstruction. Patient received multiple doses of suppositories/Fleet enema and also DILLON was attempted. With poor response in the emergency room, he was admitted for further evaluation 1. Severe constipation not responding to conservative management including suppositories/laxatives. Further complicated by poor p.o. intake/dehydration. IV fluids for now and edema/a dose of GoLytely. Reviewed with the patient and he informed that he may attempt. Monitor closely for now 2 nausea. Zofran as needed 3 abdominal discomfort apparently patient is not taking any narcotics at this time and has been attempting only lidocaine topical. Unclear if the constipation is due to poor p.o. intake but does not appear to be due to narcotics. 4. GI prophylaxis will be Protonix Patient be admitted under observation Patient was evaluated remotely with the help of a telecommunication device at [facility]. Nurse was present during the evaluation
[2024-01-17] MEDS: PEG3350/SOD SULF,BICARB,CL/KCL 4,000 ML SOLUTION 4000 ML PO (02:15)
[2024-01-17] MEDS: HYDROMORPHONE 1 MG INJ IV ×2 (05:01→21:36)
[2024-01-17 06:25] LABS: Add Manual Diff / Slide Review NO; Basophils Absolute Auto 0 /uL (0-100); Basophils Percent Auto 0.3 % (0-2); Eosinophils Absolute Auto 0 /uL (0-450); Eosinophils Percent Auto 0.1 % (2-4); Hematocrit 37.6 % (41-53); Hemoglobin 12.6 g/dL (13.5-17.5); Lymphocytes Absolute Auto 700 /uL (1100-4500); Lymphocytes Percent Auto 6.4 % (25-40); Mean Corpuscular HGB Conc 33.5 % (30-36); Mean Corpuscular Hemoglobin 30.2 PG (26-34); Mean Corpuscular Volume 90.1 fL (80-100); Monocytes Absolute Auto 600 /uL (0-900); Neutrophils Absolute Auto 10100 /uL (1500-7000); Neutrophils Percent Auto 88.2 % (50-75); Platelet Count 345 X10^3/uL (150-400); Red Blood Cell Count 4.17 X10^6/uL (4.5-5.9); Red Cell Distribution Width 12.7 % (11.6-14.8); White Blood Cell Count 11.4 X10^3/uL (4.5-11.0)
[2024-01-17 06:37] LABS: BUN Creatinine Ratio 22.4 (6-22); Blood Urea Nitrogen 15 mg/dL (9-20); Calcium 8.9 mg/dL (8.4-10.2); Carbon Dioxide 29 mmol/L (22-32); Chloride 104 mmol/L (98-107); Estimated Glomerular Filt Rate > 60 mL/min (>60); Glucose 121 mg/dL (80-110); HEMOLYSIS < 15 (0-50); Magnesium 2.3 mg/dL (1.6-2.3); Phosphorous 3.1 mg/dL (2.3-3.7); Potassium 4.1 mmol/L (3.4-5.1); Sodium 136 mmol/L (137-145)
--- NOTE | 2024-01-17 07:21 | PM.HP.1 ---
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 intake/weight loss, and other issues presented to the emergency room for abdominal discomfort with nausea and severe constipation with last unknown bowel movement. His intake has been poor and has been family drinking boost/liquid since the past couple of months after his diagnosis of the lip cancer. Has been straining and thinks he has hemorrhoids that causes pain. Denies any fever episodes. Denies any chest pain shortness of breath palpitation dizziness or loss of consciousness. No bladder issues. Has generalized weakness and speech is slow. In the ED was noted to be tachycardic with evidence of dehydration. Creatinine was 0.81 with normal AST/ALT levels. WBC is 10.[address] scan of the abdomen shows prominent colonic stool without obstruction. Patient received multiple doses of suppositories/Fleet enema and also DILLON was attempted. With poor response in the emergency room, he was admitted for further evaluation. Additional narrative: He has had multiple bowel movements after his GoLYTELY prep in his feeling as though he was improving. He denies any nausea. He did have an Oncology appointment this morning when she did reschedule for next week. [facility] Medical History Diffusion capacity of lung (dl), decreased Weight loss, abnormal Hiatal hernia Kidney stones Kidney stone on left side Tobacco abuse disorder COPD (chronic obstructive pulmonary disease) Discoid lupus Squamous cell carcinoma Actinic keratoses Vision disorder Mumps (~1955) Measles (~1954) Chicken pox (~1954) Hemorrhoid (~1970) Surgical History History of surgery Kidney stones (~2017) Family History Father No problems noted. Mother No problems noted. Social History Smoking Status: Current every day smoker Tobacco: How many years used: 55 second hand exposure: No alcohol intake: current substance use type: does not use Meds Home Medications and Allergies Home Medications Medication Instructions Recorded Confirmed Type oxygen #1 ea 11/12/23 01/17/24 Rx oxygen concentrator #1 ea 11/12/23 01/17/24 Rx Allergies Allergy/AdvReac Type Severity Reaction Status Date / Time No Known Drug Allergies Allergy Verified 09/27/23 11:37 Review of Systems Review of Systems Narrative: All else reviewed and otherwise unremarkable except as noted in the history and physical. Exam Vital Signs (past 8 hours): - 01/17/24 01:48 Temperature 98.9 F Pulse Rate 114 H Respiratory Rate 18 Blood Pressure 130/75 Pulse Oximetry 93 Oxygen Flow Rate 0 Oxygen Delivery Method Room Air Oxygen Flow Rate 0 Narrative Exam Narrative: NAD, alert and oriented, fluent speech, calm. Normocephalic skull, EOMI, anicteric sclera, symmetric pupils. Oropharynx unremarkable, no droop. Neck supple, midline trachea, no adenopathy. Lungs clear, normal rate and effort. Heart regular, no murmur gallop or rub. Abdomen is soft, non distended and non tender. Extremities are free of edema. Skin is free of rash or lesions. Joints are not swollen or deformed. Judgment appears to be normal. Objective Labs 01/17/24 05:47 01/17/24 05:47 Labs: Laboratory Results - last 24 hr 01/16/24 01/17/24 14:30 05:47 WBC 10.4 11.4 H RBC 4.56 4.17 L Hgb 14.1 12.6 L Hct 41.9 37.6 L MCV 92.0 90.1 MCH 30.9 30.2 MCHC 33.6 33.5 RDW 12.6 12.7 Plt Count 373 345 Neut % (Auto) 80.1 H 88.2 H Lymph % (Auto) 11.7 L 6.4 L [place] % (Auto) 5.5 5.0 Eos % (Auto) 1.6 L 0.1 L Baso % (Auto) 1.1 0.3 Neut # (Auto) 8400 H 75822 H Lymph # (Auto) 1200 700 L [place] # (Auto) 600 600 Eos # (Auto) 200 0 Baso # (Auto) 100 0 Sodium 141 136 L Potassium 5.4 H 4.1 D Chloride 103 104 Carbon Dioxide 33 H 29 BUN 17 15 Creatinine 0.81 0.67 Estimated GFR > 60 > 60 BUN/Creatinine Ratio 21.0 22.4 H Glucose 146 H 121 H Calcium 9.9 8.9 Phosphorus 3.1 Magnesium 2.3 Total Bilirubin 0.7 AST 31 ALT 15 Alkaline Phosphatase 106 Total Protein 8.5 H Albumin 4.4 Globulin 4.1 Albumin/Globulin Ratio 1.1 Lipase 64 Assessment & Plan Assessment & Plan narrative: 1. Severe constipation not responding to conservative management including suppositories/laxatives. Present on admission and active. -IV fluids for now and edema/a dose of GoLytely. 2. Nausea. Present on admission and active. -Zofran as needed 3. Abdominal discomfort. V - bowel program. 4. SCC of the lip. Present on admission and active. GI prophylaxis will be Protonix Patient be admitted under observation. Time Spent With Patient Time with patient: 30 to 49 minutes with 50% spent counseling/coordinating care Quality MIPS - Admit I confirm the patient?s Advance Care Plan is present, Code status is documented, Surrogate decision maker is in patient?s record [If Yes, STOP here]: Yes [facility] - Meds 'Current medications' to include all prescriptions, [id number] products, herbals, cannabis/cannabidiol products, and vitamin/mineral/dietary (nutritional) supplements. I have utilized all available resources to obtain, update, or review the patient?s current medications. [If Yes, STOP here]: Yes
[2024-01-17 09:00] VITALS: BP 148/85; PULSE 97; RESP 18; RESP 20; TEMP 36.6; O2SAT 91
[2024-01-17 13:00] VITALS: RESP 20
--- NOTE | 2024-01-17 14:31 | CM.DANOTE ---
Initial DCP Assessment Note Pt is a 73 yo male, resident of [place], arrives with severe abd pain and constipation. Admitted OBS for management. PCP: Christian Jean Payer: MCR/CHARLEENBS out of [facility] Reviewed chart, pt discussed in multidisciplinary rounds this morning. Likely to discharge home once he has a BM Met w/patient and his son Miles, introduced self and role. Patient lives independently in a cottage suite on Miles's property. Patient has no hx of HH or SNF, denies any needs from this CM team currently. Patient appreciative of the visit. No barriers identified at this time to patient's safe discharge home w/family to assist; close outpatient f/u recommended. CM team will plan to follow clinical course closely in case any DC needs or concerns arise. DELVIS Goldsmith Discharge Planning/Care Management CM Discharge Assessment Start: 01/17/24 14:00 Freq: Status: Active Protocol: Document 01/17/24 14:00 PORFIRIO (Rec: 01/17/24 14:31 PORFIRIO [id number]) Discharge Planning Assessment Assigned General Internal Medicine Physician DELVIS Glaser DPOA/Assigned Designee Name valentina Marquis Contact Information [phone] Advance Directives? No History Provided By Patient,Medical Record Prior Living Arrangements Other Comment Cottage suite on son's property Household Members family Comment Son/family on property, no one in the cottage with patient Type of transporation used prior to Drives own vehicle admit Independent with ADL's Yes Is patient alert and oriented? Yes Barriers to Discharge No Comment Home w/son Discharge Plan Home Transportation Arrangement Son Mlies Referrals Initiated None needed
[2024-01-17 16:00] VITALS: BP 96/55; PULSE 101; RESP 16; TEMP 36.6; O2SAT 96
[2024-01-17] MEDS: ACETAMINOPHEN 325 MG TABLET 650 MG PO (17:07)
--- NOTE | 2024-01-17 17:12 | PC.NURSE ---
Pt has slept at intervals T/O day Up several times to BR for BM's Lose w/ some solid consistancy Med w/ tylenol once for discomfort Call light w/in reach, pt calls appropriately for needs. Continue w/plan of care.
[2024-01-17 20:48] VITALS: BP 103/59; PULSE 97; RESP 18; TEMP 36.6; O2SAT 90
[2024-01-18] MEDS: HYDROMORPHONE 1 MG INJ IV ×4 (00:17→18:16)
[2024-01-18 04:00] VITALS: BP 91/56; PULSE 94; RESP 17; TEMP 36.4; O2SAT 90
[2024-01-18 07:20] VITALS: O2SAT 90
[2024-01-18 08:00] VITALS: BP 88/58; PULSE 94; RESP 16; TEMP 36.6; O2SAT 89
[2024-01-18 08:37] LABS: Hemoglobin 12.9 g/dL (13.5-17.5); Mean Corpuscular HGB Conc 33.8 % (30-36); Mean Corpuscular Hemoglobin 30.7 PG (26-34); Mean Corpuscular Volume 90.7 fL (80-100); Platelet Count 318 X10^3/uL (150-400); Red Blood Cell Count 4.19 X10^6/uL (4.5-5.9); Red Cell Distribution Width 12.5 % (11.6-14.8); White Blood Cell Count 10.9 X10^3/uL (4.5-11.0)
[2024-01-18 08:46] LABS: Alanine Aminotransferase 14 IU/L (<50); Albumin 3.9 g/dL (3.5-5.0); Albumin Globulin Ratio 1.2 (1.0-2.8); Alkaline Phosphatase 91 U/L (38-126); Aspartate Aminotransferase 29 IU/L (17-59); BUN Creatinine Ratio 19.5 (6-22); Bilirubin Total 0.7 mg/dL (0.2-1.3); Blood Urea Nitrogen 15 mg/dL (9-20); Calcium 8.9 mg/dL (8.4-10.2); Carbon Dioxide 30 mmol/L (22-32); Chloride 104 mmol/L (98-107); Estimated Glomerular Filt Rate > 60 mL/min (>60); Globulin 3.3 g/dL (1.7-4.1); Glucose 91 mg/dL (80-110); HEMOLYSIS < 15 (0-50); Potassium 3.8 mmol/L (3.4-5.1); Sodium 139 mmol/L (137-145); Total Protein 7.2 g/dL (6.3-8.2)
[2024-01-18] MEDS: OXYCODONE/ACETAMINOPHEN 5/325 TABLET 1 TAB PO (11:42)
[2024-01-18 13:00] VITALS: BP 93/61; PULSE 93; RESP 16; TEMP 36.6; O2SAT 111
--- NOTE | 2024-01-18 13:45 | P.PN_ITS ---
Subjective Subjective Interval history: Still passed a lot of stool, having a lot of rectal pain and abdominal cramping. This also having lip pain from his squamous cell carcinoma. He was very anxious. Exam Vital Signs (past 8 hours): - 01/18/24 07:20 01/18/24 08:00 Temperature 97.9 F Pulse Rate 94 H Respiratory Rate 16 Blood Pressure 88/58 L Pulse Oximetry 90 L 89 L Oxygen Delivery Method Nasal Cannula Oxygen Flow Rate 1 Oxygen Delivery Method Nasal Cannula Oxygen Flow Rate 1 Narrative Exam Narrative: Anxious, moderate distress. Lungs are clear Heart is regular Abdomen is non-distended Legs are free of edema Objective Labs 01/18/24 08:25 01/18/24 08:25 Labs: Laboratory Results - last 24 hr 01/18/24 08:25 WBC 10.9 RBC 4.19 L Hgb 12.9 L Hct 38.0 L MCV 90.7 MCH 30.7 MCHC 33.8 RDW 12.5 Plt Count 318 Sodium 139 Potassium 3.8 Chloride 104 Carbon Dioxide 30 BUN 15 Creatinine 0.77 Estimated GFR > 60 BUN/Creatinine Ratio 19.5 Glucose 91 Calcium 8.9 Total Bilirubin 0.7 AST 29 ALT 14 Alkaline Phosphatase 91 Total Protein 7.2 Albumin 3.9 Globulin 3.3 Albumin/Globulin Ratio 1.2 [facility] Medical History Diffusion capacity of lung (dl), decreased Weight loss, abnormal Hiatal hernia Kidney stones Kidney stone on left side Tobacco abuse disorder COPD (chronic obstructive pulmonary disease) Discoid lupus Squamous cell carcinoma Actinic keratoses Vision disorder Mumps (~1955) Measles (~1955) Chicken pox (~195) Hemorrhoid (~1970) Surgical History History of surgery Kidney stones (~2017) Family History Father No problems noted. Mother No problems noted. Social History household members: family Smoking Status: Current every day smoker Tobacco: How many years used: 55 second hand exposure: No alcohol intake: current substance use type: does not use Assessment & Plan Assessment & Plan narrative: 1. Severe constipation not responding to conservative management including suppositories/laxatives. Present on admission and active. 2. Nausea. Present on admission and active. -Zofran as needed 3. Abdominal discomfort. V - bowel program. 4. SCC of the lip. Present on admission and active. PLAN: -continue supportive care as he continues to have painful and copious bowel movements. -analgesia as needed. -Ativan for severe anxiety. He may require another night of observation to provide supportive care for his very severe constipation.
[2024-01-18] MEDS: LORazepam 2 MG/ML INJ 0.5 MG IV (14:24)
--- NOTE | 2024-01-18 14:39 | CM.DPC ---
DCP Cont: Patient has now been passing stool, noting some anxiety. Patient may stay another night, should be able to discharge home tomorrow. Patient resides here in [place] on son's property. P: DCP to continue to follow. Patient should be able to go home, most likely tomorrow, if not today. Fe Tejada RN/Snack Bar Attendant
[2024-01-18] MEDS: OXYCODONE/ACETAMINOPHEN 5/325 TABLET 2 TAB PO ×2 (15:00→21:45)
[2024-01-18] MEDS: LORazepam 0.5 MG TABLET PO ×2 (17:14→21:45)
[2024-01-18 18:00] VITALS: BP 93/54; PULSE 87; RESP 16; TEMP 36.6; O2SAT 95
[2024-01-18 20:00] VITALS: BP 114/74; PULSE 88; RESP 18; TEMP 36.3; O2SAT 91
[2024-01-19 00:25] VITALS: BP 88/48; PULSE 92; RESP 16; TEMP 36.3; O2SAT 86
[2024-01-19 04:20] VITALS: BP 96/55; PULSE 104; RESP 16; TEMP 36.2; O2SAT 89
[2024-01-19] MEDS: HYDROMORPHONE 1 MG INJ IV (07:50)
[2024-01-19 08:00] VITALS: BP 99/63; PULSE 76; RESP 16; TEMP 36.3; O2SAT 95
[2024-01-19 12:00] VITALS: BP 94/58; PULSE 98; RESP 16; TEMP 36.6; O2SAT 96
--- NOTE | 2024-01-19 15:15 | CM.DPC ---
DCP Cont. Reviewed EMR and team rounds for status updates. Per Dr. Wilburn, pt continues to have copious amounts of bowel movements w/pain and discomfort following severe constipation. Likely just 1-more night before readiness for d/c.
--- NOTE | 2024-01-19 16:01 | P.DS_ITS ---
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 intake/weight loss, and other issues presented to the emergency room for abdominal discomfort with nausea and severe constipation with last unknown bowel movement. His intake has been poor and has been family drinking boost/liquid since the past couple of months after his diagnosis of the lip cancer. Has been straining and thinks he has hemorrhoids that causes pain. Denies any fever episodes. Denies any chest pain shortness of breath palpitation dizziness or loss of consciousness. No bladder issues. Has generalized weakness and speech is slow. In the ED was noted to be tachycardic with evidence of dehydration. Creatinine was 0.81 with normal AST/ALT levels. WBC is 10.[address] scan of the abdomen shows prominent colonic stool without obstruction. Patient received multiple doses of suppositories/Fleet enema and also DILLON was attempted. With poor response in the emergency room, he was admitted for further evaluation. Additional narrative: He has had multiple bowel movements after his GoLYTELY prep in his feeling as though he was improving. He denies any nausea. He did have an Oncology appointment this morning when she did reschedule for next week. Discharge Providers Provider Date of admission: 01/16/24 23:51 Discharge Date: 01/19/24 Primary care physician: Christian Jean DO Discharge provider: Alexei Wilburn MD Summary Hospital Course Discharge Diagnosis: 1. Severe constipation not responding to conservative management including suppositories/laxatives. Present on admission and active. 2. Nausea. Present on admission and active. 3. Abdominal discomfort. Present on admission and improved. - bowel program. 4. SCC of the lip. Present on admission and active. Hospital Course: This patient was admitted with severe constipation and given GoLYTELY prep. He would copious bowel movements for 2 solid days. He had a lot of distress with his bowel movements and the prep. He finally improved in the afternoon of January 18 and was felt to be stable for discharge home. He will resume usual program of MiraLax once to twice a day at home as well as Dulcolax daily. He was lidocaine topical and hydrocodone at home from his oncologist. He is 2 remaining radiation treatments for his lip squamous cell carcinoma. He was discharged to the care of his son who is visiting from [place] and will be here for the next week. Status at Discharge Cognitive/behavioral status at discharge: oriented Functional status at discharge: independent ambulation Overall status at discharge: patient is back to baseline Time Spent with Patient Time spent: Greater than 30 minutes Exam Vital Signs (past 8 hours): - 01/19/24 12:00 Temperature 97.8 F Pulse Rate 98 H Respiratory Rate 16 Blood Pressure 94/58 L Pulse Oximetry 96 Oxygen Delivery Method Nasal Cannula Oxygen Flow Rate 0 Narrative Exam Narrative: NAD, alert and oriented. Fluent speech. Right lower lip lesion. Lungs are clear, normal rate and effort. Heart is regular, no murmur gallop or rub. Abdomen is soft, non distended. Extremities are free of edema. Objective Labs 01/18/24 08:25 01/18/24 08:25 [facility] Medical History Diffusion capacity of lung (dl), decreased Weight loss, abnormal Hiatal hernia Kidney stones Kidney stone on left side Tobacco abuse disorder COPD (chronic obstructive pulmonary disease) Discoid lupus Squamous cell carcinoma Actinic keratoses Vision disorder Mumps (~1955) Measles (~1954) Chicken pox (~1954) Hemorrhoid (~1970) Surgical History History of surgery Kidney stones (~2017) Family History Father No problems noted. Mother No problems noted. Social History household members: family Smoking Status: Current every day smoker Tobacco: How many years used: 55 second hand exposure: No alcohol intake: current substance use type: does not use Discharge Assessment & Plan Assessment and Plan Assessment: 1. Severe constipation not responding to conservative management including suppositories/laxatives. Present on admission and active. Plan of Treatment: Discharge home with bowel program and close follow up with his oncologist and radiation oncologist. Discharge Plan Discharge Plan Patient Disposition: Home Provider Discharge Comment: Stable for discharge with bowel program. Close follow up. Discharge orders & Medications Prescriptions: No Action (DME) oxygen Qty: 1 0RF Dose Instruction: As directed Rx Instructions: As directed (DME) oxygen concentrator Qty: 1 0RF Dose Instruction: As directed Rx Instructions: As directed Medication counseling provided by Pharmacist: No Follow up/Referrals: Christian Jean DO [Primary Care Provider] - Discharge Health Status Multidrug resistant organism: No MDRO Diet/Activity/Treatments Diet: Diet as Tolerated Visit Report/Discharge Packet Instructions: DI for Constipation Stand Alone Forms: Patient Portal/API Discharge Data Primary Care Provider: Christian Jean Attending Provider: Power Duron Admit Date/Time: 01/16/24 23:51
--- NOTE | 2024-01-19 16:23 | PC.NURSE ---
Discharge note: Patient discharged home per MD order, discussed importance of home bowel regimen, F/U with PMD, and signs of worsening symptoms. Patient to receive subsequent radiation therapy on 01/19. Verbalized understanding of instructions. Home via private vehicle, accompanied by son.
== END 2024-01-19 16:00 | disposition home or self-care (01) | DRG 392 ==
LOC: ED 23:51 → AC 23:52
PROVIDERS: Emergency Medicine; Hospitalist; Admitting Provider Internal Medicine; Emergency Provider Emergency Medicine; PCP Family Medicine; Visit Provider Internal Medicine
DX: K59.00 Constipation, unspecified (principal); C00.1 Malignant neoplasm of external lower lip; G89.3 Neoplasm related pain (acute) (chronic); E86.0 Dehydration; R11.0 Nausea; F17.200 Nicotine dependence, unspecified, uncomplicated
CPT/HCPCS: 36415; 74177; 80048; 80053; 83690; 83735; 84100; 85025; 85027; 96374; 99285; 99291; 99406; G0378; J1170; J2060; Q9967

== ENCOUNTER → 2024-06-22 07:47 | Outpatient (CLI) | payer MEDICARE, BC, SELFPAY ==
--- NOTE | 2024-06-22 07:49 | DI.CT.S_ITS ---
PROCEDURE: CT CHEST WO CON INDICATIONS: CANCER OF EXTERNAL LOWER LIP TECHNIQUE: Noncontrast 5 mm thick sections acquired from the pulmonary apices to the posterior costophrenic angles. 1 mm lung window, 5 mm thick coronal and sagittal and 7 mm axial MIP reformats were then acquired. For radiation dose reduction, the following was used: automated exposure control, adjustment of mA and/or kV according to patient size. COMPARISON: [facility], CT, CT LUNG LOW DOSE SCREENING, 09/23/2023, 10:46. [facility], CT, CT CHEST WO CON, 01/02/2024, 12:13. FINDINGS: Image quality: Diagnostic. Lower Neck: No enlarged lymph nodes. Thyroid: No thyroid nodules which require sonographic follow up, per consensus guidelines. Axillae: No enlarged lymph nodes. Chest Wall: Unremarkable. Bones: Unremarkable. Lungs and Pleura: No pneumothorax or pleural effusions. Advanced destructive emphysema. Similar size and appearance of the curvilinear nodularity in the right upper lobe, with peripheral reticulation. Max thickness measures 7 millimeters on coronal, similar to prior. Waxing and waning tree-in-bud nodules. Bronchial thickening period Heart: Heart size is normal. No pericardial effusion. Three-vessel coronary calcifications. Thoracic Vessels: The aorta and pulmonary arteries demonstrate normal size. Mediastinum and Katherine: No enlarged lymph nodes. Esophagus: No wall thickening. No hiatal hernia. Upper Abdomen: Macro lobulated liver contour. Small burden of punctate, nonobstructing left-sided nephrolithiasis. IMPRESSION: Similar size and appearance of the curvilinear nodularity in the right upper lobe, favoring a scar. Recommend continued annual surveillance with low-dose chest CT in September of 2024. Marked coronary artery calcifications for age. Correlate with risk factors and advise counseling. Advanced destructive emphysema. Macro lobulated liver contour, suggestive of cirrhosis. Waxing and waning tree-in-bud nodules, suggestive of a chronic infectious/inflammatory bronchiolitis or aspiration. Correlate with risk factors of aspiration. Other chronic findings as above. Dictated by: Jun Loza M.D. on 06/22/2024 at 8:10 Approved by: Jun Loza M.D. on 06/22/2024 at 8:25
--- NOTE | 2024-06-22 07:49 | DI.CT.S_ITS ---
PROCEDURE: CT SOFT TISSUE NECK WO CON INDICATIONS: CANCER OF EXTERNAL LOWER LIP TECHNIQUE: Non-contrast 3.0 mm axial sections acquired from the sella to the aortic arch. Additional oblique axial 3.0 mm sections acquired through the pharynx. 3 mm thick coronal and sagittal reformats were generated. For radiation dose reduction, the following was used: automated exposure control. COMPARISON: [facility], CT, CT SOFT TISSUE NECK WO CON, 01/02/2024, 12:13. FINDINGS: Image quality: Diagnostic sensitivity study limited secondary to lack of IV contrast. Patient refused administration of IV contrast. Image quality degraded by metallic dental hardware beam hardening artifact. Lymph nodes: No enlarged lymph nodes seen throughout the neck. Vessels: Non-opacified vessels appear normal in caliber. Neck spaces: The oropharynx, nasopharynx, and pharynx demonstrate no mucosal lesions. The vocal cords, false vocal cords, pyriform sinuses, epiglottis, vallecula, and tongue base all appear normal. Extramucosal spaces appear unremarkable. Glands: The parotid and submandibular glands appear normal, without stones. Thyroid gland is normal. Bones: No aggressive osseous abnormality. No displaced fractures. Miscellaneous: Visualized brain and orbits appear normal. Spine degenerative disc disease and facet arthropathy. Severe biapical lung emphysematous disease and parenchymal scarring without significant change compared to prior exam. Superficial soft tissues appear normal. IMPRESSION: Diagnostic sensitivity of the study is limited secondary to lack of IV contrast and image quality is degraded by artifact related to dental hardware. No definite lower lip mass within limitations of the study. No lymphadenopathy based on size criteria. Dictated by: Netta Thomson MD, PhD on 06/23/2024 at 11:17 Approved by: Netta Thomson MD, PhD on 06/23/2024 at 11:25
== END ==
PROVIDERS: PCP Family Medicine; Referring Provider Radiology Radiation Oncology; Visit Provider Radiology Radiation Oncology
DX: C00.1 Malignant neoplasm of external lower lip (principal); I25.10 Atherosclerotic heart disease of native coronary artery without angina pectoris; J43.9 Emphysema, unspecified; R91.8 Other nonspecific abnormal finding of lung field
CPT/HCPCS: 70490; 71250

== ENCOUNTER → 2025-07-19 16:42 | Outpatient (ROUT) | payer MEDICARE, BC, SELFPAY | PROVIDERS: PCP Family Medicine | DX: Z79.899 Other long term (current) drug therapy (principal); D48.5 Neoplasm of uncertain behavior of skin; L72.0 Epidermal cyst; L03.90 Cellulitis, unspecified; D17.39 Benign lipomatous neoplasm of skin and subcutaneous tissue of other sites | CPT/HCPCS: 87070; 87205 ==